=== PATIENT | female | born 1995 | race Caucasian/White ===

== ENCOUNTER 2025-01-07 18:29 | Emergency (ER) | payer MEDICAID, SELFPAY ==
[2025-01-07 18:41] VITALS: PULSE 54; RESP 18; O2SAT 99; BMI 27.6
--- NOTE | 2025-01-07 18:44 | EKG_ITS ---
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
--- NOTE | 2025-01-07 18:44 | PD.EDADULT ---
ED General RME/HPI General Chief complaint: Syncope / Near Syncope Stated complaint: NEAR SYNCOPE Time Seen by Provider: 01/07/25 18:40 Arrival date/time: 01/07/25 18:29 CC: Near syncope x 2 HPI onset approximately 2 hours ago the patient still complains that she is lightheaded. 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 Patient states mostly happens when she has been standing for long period time or exerting herself today that started after abruptly standing up and then became lightheaded and dizzy. EMS reports stable vital signs other than the bradycardia. No other complaints at this time including no nausea or vomiting diarrhea. Related Data Home Medications ?Medication ?Instructions ?Recorded ?Confirmed vit no.95-ferrous 1 tab PO QDAY 12/14/18 03/01/19 fumarate 28 mg-folic acid 800 mcg tablet () ferrous sulfate 325 mg (65 mg 325 mg PO QDAY 01/23/19 03/01/19 iron) tablet (iron) Previous Rx's ?Medication ?Instructions ?Recorded ibuprofen 800 mg tablet 800 mg PO Q6H PRN pain #90 tabs 03/03/19 prednisone 10 mg tablet 10 mg PO BID #6 tabs 06/29/19 ondansetron HCl 4 mg tablet 4 mg PO Q8H #20 tabs 05/27/20 (Zofran) prednisone 20 mg tablet 40 mg PO QDAY #10 tabs 12/19/23 Allergies Allergy/AdvReac Type Severity Reaction Status Date / Time adhesive Allergy Severe Blister Verified 10/26/23 11:33 amoxicillin trihydrate Allergy Severe Rash Verified 10/26/23 11:33 bee venom protein (honey bee) Allergy Severe redness Verified 10/26/23 11:33 swelling itching clindamycin Allergy Severe ALTERED Verified 10/26/23 11:33 MOOD Milk Containing Products Allergy Severe Nausea Verified 10/26/23 11:33 (Dairy) (Milk Containing Products) Penicillins Allergy Severe Rash Verified 10/26/23 11:33 potassium clavulanate Allergy Severe Rash Verified 10/26/23 11:33 Sulfa (Sulfonamide Allergy Severe Rash Verified 10/26/23 11:33 Antibiotics) Review of Systems Review of Systems Narrative Review of Systems: GEN: No fever, no chills, no weight loss EYES: No discharge, no visual changes, no pain HEENT: No ear pain, no congestion, no sore throat PULM: No shortness of breath, no cough, no congestion CV: No chest pain, no dyspnea on exertion, no palpitations GI: No nausea, no vomiting, no diarrhea, no pain, no constipation : No frequency, no urgency, no dysuria MUSC/SKEL: No joint pain, no back pain SKIN: No rash PSYCH: No hallucinations, no depression HEME/LYMPH: No easy bleeding or bruising tendencies NEURO: No weakness, no headache,+ lightheadedness Past Medical History Past Medical History NEUROLOGIC: Negative Neurological Disorders CARDIAC: Positive Cardiac Disorders (loop recorder), Cardiac Arrhythmia and Heart Murmur; Negative Congestive Heart Failure RESPIRATORY: Positive Asthma; Negative Chronic Obstructive Pulmonary Disease (COPD) GASTROINTESTINAL: Negative Gastrointestinal Disorders GENITOURINARY: Negative Genitourinary Disorders or Renal Disease REPRODUCTIVE: Negative Previous Pregnancies MUSCULOSKELETAL: Positive Musculoskeletal Disorders and Scoliosis ENDOCRINE: Negative Endocrine Disorders, Diabetes Mellitus Type 1 or Diabetes Mellitus Type 2 HEMATOLOGIC: Positive Anemia; Negative Blood Disorders PSYCHO/SOCIAL: Positive Depression and Anxiety OTHER HISTORY: Positive Hospitalization and Autoimmune Disease; Negative Cancer Family History FAMILY HISTORY: Positive Family Psychiatric Problems, Family Gastrointestinal Problems and Family Cancer; Negative Family Respiratory Disorders, Family Cardiac Disorders, Family Surgery or Family Anesthesia Reaction Surgical History SURGICAL: Positive Cardiac Surgery, Cardiac Catheterization and Tonsillectomy; Negative Endocrine Surgery, Abdominal Surgery or Section Social History SMOKING STATUS: Current every day smoker SECOND HAND EXPOSURE: No SUBSTANCE USE: does not use ED Exam Narrative Physical exam: [General: Not in any acute distress Head normocephalic HEENT: Within acceptable limits Neck is supple nontender Chest equal chest rise nontender to palpation Respiratory: Clear to auscultation no wheezes crackles or rubs CV: Rate rhythm is regular, bradycardic, no murmurs rubs or clicks Abdomen is soft nontender no masses positive bowel sounds all 4 quadrants Back: No CVA tenderness no spinous process tenderness from cervical spine thoracic and lumbar spine Skin: Intact no petechiae rash induration ulceration or crepitus Extremities: Moving all extremities against resistance cap refill less than 2 seconds neurosensory intact Neuro: Awake alert oriented x3 Glascow coma 15 no focal deficits] Course Quality Measures none Orders Category Date Time Status EKG (ED ONLY) *Do not use* NOW Care 01/07/25 18:44 Completed EKG (ED Only) Stat Exams 01/07/25 18:44 Draft B-Type Natriuretic Peptide Stat Lab 01/07/25 19:06 Completed CBC Stat Lab 01/07/25 19:06 Completed Comprehensive Metabolic Panel Stat Lab 01/07/25 19:06 Completed Drug Screen,Urine Stat Lab 01/07/25 20:13 Completed LDH (Lactate Dehydrogenase) Stat Lab 01/07/25 19:06 Completed Magnesium Stat Lab 01/07/25 19:06 Completed Partial Thromboplastin Time Stat Lab 01/07/25 19:06 Completed Prothrombin Time with INR Stat Lab 01/07/25 19:06 Completed Troponin I Stat Lab 01/07/25 19:06 Completed Urinalysis Stat Lab 01/07/25 20:13 Completed Sodium Chloride 0.9% 1000 ml [Ns] 1,000 ml Med 01/07/25 20:15 Discontinued IV 999 mls/hr Vital Signs Vital signs: Vital Signs Temperature 98.5 F 01/07/25 18:48 Pulse Rate 50 L 01/07/25 18:48 Respiratory Rate 18 01/07/25 18:48 Blood Pressure 102/67 01/07/25 18:48 Pulse Oximetry (%) 98 01/07/25 18:48 Oxygen Delivery Method Room Air 01/07/25 18:48 [facility] Patient data External records reviewed:: [facility] previous records and EMS form Clinical information provided by:: patient and EMS Social determinants that could affect healthcare access:: none Patient has the following chronic illnesses:: None How is presenting disease/condition affected by chronic disease/condition?: uneffected by Evaluation data The following diagnostics were reviewed and interpreted by me:: lab results and EKG tracing(s) Lab and/or radiology exams considered but not ordered:: EKG performed at 185 shows a ventricular rate of 50 [place] interval of 131 QRS of 101 QTc of 427 the sinus bradycardia. When compared to an old EKG of October 26, 2023. There are no significant changes. CBC shows no acute leukocytosis anemia thrombocytopenia Coags within acceptable limits CMP shows no significant electrolyte imbalances renal impairment there is mild transaminitis elevated elevation but no T. bili elevation. Mag of 1.8. Trope is negative BNP is negative Interpretation Summary: Reassessment of this patient at 2119, the patient feels much better after fluids. Patient has an atypical presentation of lightheadedness after standing up which I suspect was secondary to mild dehydration. Patient states he feels much better all symptoms have resolved. At this time patient will be discharged home with mild dehydration. Medications Medications considered but not ordered:: None Medication administrations:: Medication Administration History Discontinued Medications Sodium Chloride (Ns) 1,000 mls @ 999 mls/hr IV .Q1H1M ONE Stop: 01/07/25 21:15 Last Admin: 01/07/25 20:18 Dose: 999 mls/hr Documented By: KATHIE None Consultations Consultation(s) initiated? (list below): No Diagnosis Differential Diagnosis ED Complaint MDM: Dehydration electrolyte imbalances renal impairment Most likely diagnosis given after review of the tests above:: Mild dehydration Admission Indicated Admission indicated?: not indicated Explain why admission is indicated or not indicated:: Stable for outpatient follow-up Admission Request Was there a request for admission?: No Disposition Plan Disposition Plan: Discharge Discharge Attestation Discharge Attestation: The patient and all family members were given an opportunity to ask questions and understood the discharge instructions. Discharge instructions specifically effects, indications for sooner follow up or return to the emergency department, and the expected course of current diagnosis. Patient condition: Stable Medical Decision Making Differential Diagnosis Differential Diagnosis: Dehydration electrolyte imbalances renal impairment Lab Data 01/07/25 19:06 01/07/25 19:06 Labs: Lab Results 01/07/25 01/07/25 Range/Units 19:06 20:13 WBC 10.6 (3.6-11.0) Thou/mm3 RBC 4.11 (4.00-5.20) Miln/mm3 Hgb 12.2 (12.0-16.0) g/dL Hct 35.7 L (36.0-46.0) % MCV 87 (80-100) fL MCH 29.7 (25.0-35.0) pg MCHC 34.2 (31.0-37.0) g/dl RDW Std Deviation 38.7 (36.4-46.3) fL Plt Count 253 (140-440) Thou/mm3 Neut % (Auto) 71 (37-80) % Lymph % (Auto) 21 (10-50) % [place] % (Auto) 6 (0-12) % Eos % (Auto) 1 (0-10) % Baso % (Auto) 1 (0-2.5) % Neut # (Auto) 7.6 (1.8-7.7) Thou/mm3 Lymph # (Auto) 2.2 (1.0-4.8) Thou/mm3 [place] # (Auto) 0.7 (0.0-0.8) Thou/mm3 Eos # (Auto) 0.1 (0.0-0.5) Thou/mm3 Baso # (Auto) 0.1 (0.0-0.2) Thou/mm3 Immature Gran # (Auto) 0.03 H (0.00-0.00) Thou/mm3 Absolute Nucleated RBC 0.00 (0.00-0.00) Thou/mm3 Immature Gran % 0 (0-0) % Nucleated RBC % 0 (0) /100 WBC PT 11.2 (9.0-12.2) Seconds INR 1.0 (0.9-1.3) APTT 29.8 (22.0-36.0) Seconds Sodium 139 (136-145) mMol/L Potassium 3.5 (3.4-5.1) mMol/L Chloride 107 (98-107) mMol/L Carbon Dioxide 22.6 (20.0-31.0) mMol/L Anion Gap 9 (7-16) BUN 8 L (9-23) mg/dL Creatinine 0.8 (0.6-1.3) mg/dL Estim Creat Clear Calc 99.6 (>60) mL/min eGFR > 60 (60 - ) See Note BUN/Creatinine Ratio 10 L (12-20) Ratio Glucose 88 (74-106) mg/dL Calculated Osmolality 274 L (275-295) Calcium 9.0 (8.3-10.6) mg/dL Corrected Calcium 9.0 (8.5-10.1) mg/dL Magnesium 1.8 (1.6-2.6) mg/dL Total Bilirubin 0.4 (0.3-1.2) mg/dL AST 39 H (0-34) U/L ALT 69 H (10-49) U/L Alkaline Phosphatase 70 (46-116) U/L Lactate Dehydrogenase 184 (120-246) U/L Troponin I < 0.002 (0.0-0.045) ng/mL B-Natriuretic Peptide 37 (0-100) pg/mL Total Protein 6.6 (5.7-8.2) gm/dL Albumin 4.3 (3.5-5.0) gm/dL Globulin 2.3 (2.3-3.5) gm/dL Albumin/Globulin Ratio 1.9 (1.2-2.2) Ur Collection Type Clean Catch Urine Color Lt-Yellow (Lt Yel-Yel) Urine Clarity Turbid A (Clear/Hazy) Urine pH 6.0 (5.0-7.0) Ur Specific [place] 1.019 (1.001-1.035) Urine Protein Negative (Neg - Trace) Urine Glucose (UA) Negative (Negative) Urine Ketones 1+ A (Negative) Urine Blood Trace (Negative) Urine Nitrite Negative (Negative) Urine Bilirubin Negative (Negative) Urine Urobilinogen (Auto) Negative (0.0-1.0) mg/dL Ur Leukocyte Esterase Positive (Negative) Urine RBC 1 (0-3) /hpf Urine WBC 8 H (0-5) /hpf Ur Squamous Epith Cells 12 H (0-5) /hpf Urine Bacteria Rare (None) Urine Opiates Screen Negative (Negative) Urine Fentanyl Screen Negative (Negative) Ur Barbiturates Screen Negative (Negative) U Amphetamin/Meth Scrn Negative (Negative) U Benzodiazepines Scrn Negative (Negative) U Cocaine Metab Screen Negative (Negative) U Marijuana (THC) Screen Positive A (Negative) Discharge Plan Plan Patient Disposition: HOME (Self Care) Patient condition on transfer: Stable Prescriptions/Referrals Prescriptions/Med Rec: No Action prednisone 10 mg tablet 10 mg PO BID Qty: 6 0RF ondansetron HCl [Zofran] 4 mg tablet 4 mg PO Q8H Qty: 20 0RF PNV cmb#95-ferrous fumarate-FA [] 28 mg iron- 800 mcg Tablet 1 tab PO QDAY ferrous sulfate [iron] 325 mg (65 mg iron) Tablet 325 mg PO QDAY ibuprofen 800 mg tablet 800 mg PO Q6H PRN (Reason: pain) Qty: 90 0RF prednisone 20 mg tablet 40 mg PO QDAY Qty: 10 0RF Taper: Prednisone Taper 20 mg DAILY for 2 Days and 0 Hour 10 mg DAILY for 2 Days and 0 Hour 5 mg DAILY for 7 Days and 0 Hour Referrals: Yoana Donnelly FNP ([email or web address]) [Primary Care Provider] - In 1 week Problem List Clinical Impression: Dehydration Patient/Caregiver Discharge Instructions Education Materials: ED Dehydration (Adult) Additional Instructions: Increase your water intake during the day especially as it heats up. If there is a worsening of symptoms follow-up with your primary care doctor otherwise return the emergency room for reevaluation. Print Language: [place] Stand Alone Forms: Juliette Award Info., Work/School Release, Patient Portal Info Letter PA/KATIE Supervising Physician PA/METAL [employer] SUPERVISOR Supervising Physician: Joseph Villanueva ENP
[2025-01-07 18:48] VITALS: BP 102/67; PULSE 50; RESP 18; TEMP 36.9; O2SAT 98
[2025-01-07 19:20] LABS: Basophils # (Auto) 0.1 Thou/mm3 (0.0-0.2); Basophils % (Auto) 1 % (0-2.5); Eosinophils # (Auto) 0.1 Thou/mm3 (0.0-0.5); Eosinophils % (Auto) 1 % (0-10); Hematocrit 35.7 % (36.0-46.0); Hemoglobin 12.2 g/dL (12.0-16.0); Immature Granulocytes % (Auto) 0 % (0-0); Immature Granulocytes Auto 0.03 Thou/mm3 (0.00-0.00); Lymphocytes # (Auto) 2.2 Thou/mm3 (1.0-4.8); Lymphocytes % (Auto) 21 % (10-50); Mean Corpuscular HGB Conc 34.2 g/dl (31.0-37.0); Mean Corpuscular Hemoglobin 29.7 pg (25.0-35.0); Mean Corpuscular Volume 87 fL (80-100); Monocytes # (Auto) 0.7 Thou/mm3 (0.0-0.8); Monocytes % (Auto) 6 % (0-12); Neutrophils # (Auto) 7.6 Thou/mm3 (1.8-7.7); Neutrophils % (Auto) 71 % (37-80); Nucleated Red Blood Cell % 0 /100 WBC (0); Platelet Count 253 Thou/mm3 (140-440); RDW Standard Deviation 38.7 fL (36.4-46.3); Red Blood Count 4.11 Miln/mm3 (4.00-5.20); White Blood Count 10.6 Thou/mm3 (3.6-11.0)
[2025-01-07 19:34] LABS: Partial Thromboplastin Time 29.8 Seconds (22.0-36.0); Prothrombin Time 11.2 Seconds (9.0-12.2)
[2025-01-07 19:40] LABS: B-Type Natriuretic Peptide 37 pg/mL (0-100)
[2025-01-07 19:49] VITALS: BP 108/65; PULSE 48; RESP 17; TEMP 36.8; O2SAT 97
[2025-01-07 20:10] LABS: Alanine Aminotransferase 69 U/L (10-49); Albumin, Serum 4.3 gm/dL (3.5-5.0); Albumin/Globulin Ratio 1.9 (1.2-2.2); Alkaline Phosphatase 70 U/L (46-116); Anion Gap 9 (7-16); Aspartate Amino Transferase 39 U/L (0-34); BUN/Creatinine Ratio 10 Ratio (12-20); Bilirubin,Total 0.4 mg/dL (0.3-1.2); Blood Urea Nitrogen 8 mg/dL (9-23); Carbon Dioxide 22.6 mMol/L (20.0-31.0); Chloride 107 mMol/L (98-107); Creatinine (Component) 0.8 mg/dL (0.6-1.3); Estimated Creatinine Clearance 99.6 mL/min (>60); Globulin 2.3 gm/dL (2.3-3.5); Glucose 88 mg/dL (74-106); LDH (Lactate Dehydrogenase) 184 U/L (120-246); Magnesium 1.8 mg/dL (1.6-2.6); Osmolality,Calculated 274 (275-295); Potassium 3.5 mMol/L (3.4-5.1); Sodium 139 mMol/L (136-145); Total Protein 6.6 gm/dL (5.7-8.2); Troponin I < 0.002 ng/mL (0.0-0.045); eGFR > 60 See Note
[2025-01-07 20:18] LABS: Collection Type, Urine Clean Catch
[2025-01-07] MEDS: SODIUM CHLORIDE 0.9% 1000 ML 1,000 ML 999 ML IV (20:18)
[2025-01-07 20:31] LABS: Bacteria,Urine Rare; Bilirubin,Urine Negative (Negative); Blood,Urine Trace (Negative); Clarity,Urine Turbid (Clear/Hazy); Color,Urine Lt-Yellow (Lt Yel-Yel); Glucose, Urine Negative (Negative); Ketones,Urine 1+ (Negative); Leukocyte Esterase,Urine Positive (Negative); Nitrite,Urine Negative (Negative); Protein,Urine Negative (Neg - Trace); RBC,Urine 1 /hpf (0-3); Specific Gravity,Urine 1.019 (1.001-1.035); Squamous Epithelial Cell,Urine 12 /hpf (0-5); Urobilinogen,Urine Negative mg/dL (0.0-1.0); WBC,Urine 8 /hpf (0-5)
[2025-01-07 20:43] LABS: Amphetamine/Methamp Scrn,U Negative (Negative); Barbiturate Screen,Urine Negative (Negative); Benzodiazepines Screen,Urine Negative (Negative); Benzoylecgonine Screen, Ur Negative (Negative); Fentanyl Screen,Urine Negative (Negative); Opiate Screen,Urine Negative (Negative); THC Screen,Urine Positive (Negative)
[2025-01-07 21:00] VITALS: BP 101/49; PULSE 57; RESP 20; TEMP 36.9; O2SAT 94
== END 2025-01-07 21:31 | disposition home or self-care (01) ==
PROVIDERS: Registered Nurse General Practice; Emergency Provider Emergency Medicine; PCP Nurse Practitioner Primary Care
DX: E86.0 Dehydration (principal); R00.1 Bradycardia, unspecified; F17.290 Nicotine dependence, other tobacco product, uncomplicated
CPT/HCPCS: 36415; 80053; 80307; 81001; 83615; 83735; 83880; 84484; 85025; 85610; 85730; 93005; 96360; 99284; J7030